=== PATIENT | female | born 1985 | race Caucasian/White ===

== ENCOUNTER 2021-12-11 18:51 | Emergency (ER) | payer OTHER, SELFPAY ==
[2021-12-11] MEDS ORDERED: Ibuprofen 800 MG TAB ONE (22:28)
== END 2021-12-11 22:31 | disposition home or self-care (01) ==
LOC: ERS 18:51
DX: M54.42 Lumbago with sciatica, left side (principal); I10 Essential (primary) hypertension; V89.9XXA Person injured in unspecified vehicle accident, initial encounter
CPT/HCPCS: 71045; 72100; 72170